=== PATIENT | male | born 1960 | race Caucasian/White ===

== ENCOUNTER 2016-12-23 09:53 | Emergency (ER) | payer OTHER ==
[~2016-12-23] VITALS: Ht 172.7 cm; Wt 87.3 kg
[2016-12-23 09:57] VITALS: TEMP 36.5; Ht 172.7 cm; Wt 87.3 kg
--- NOTE | 2016-12-23 10:56 | EMERGENCY ROOM VISIT NOTE ---
History Report prepared by Jose: Evelyn Cruz Under the Supervision of: Dr. Francesco Phelps M.D. First contact with patient: 10:47 Chief Complaint: RABIES VACCINE Stated Complaint: RABID CAT-RABIES VACCINE History of Present Illness The patient is a 56 year old male who presents to the Emergency Room with complaints of a sudden exposure to rabies that occurred five days ago. The patient states that he was working on his daughter's house this weekend when he had cut his finger. He states that his daughter fixed up the wound. The patient states that his daughter had found a stray kitten that day that tested positive for rabies. He states that he was called by the department of health today and told to come to the emergency department for a rabies vaccine. The patient denies any cat bite. He states that the cat tried scratching him, but denies any break in his skin. The patient denies ever having rabies in the past. He states that his tetanus is up to date. The patient denies any other complaints today. Source of History: patient Onset: five days ago Position: other (global) Quality: other (rabies exposure) Timing: other (sudden) Note: Associated Symptoms: wound exposed to rabies Review of Systems See HPI for pertinent positives & negatives. A total of 10 systems reviewed and were otherwise negative. Past Medical & Surgical Medical Problems: (1) No Known Active Medical Problems Family History Patient reports no known family medical history. Social History Smoking Status: Current Every Day Smoker Drug Use: none Marital Status: Housing Status: lives with significant other Occupation Status: employed Current/Historical Medications Scheduled Atorvastatin (Lipitor), 1 TAB PO DAILY Lisinopril/Hctz (Zestoretic 20MG/25MG), 1 TAB PO DAILY Oxycodone/Acetaminophen 7.5MG/325MG (Percocet 7.5MG/325MG), 1 TAB PO q 4 hrs prn Allergies Coded Allergies: No Known Allergies (Unverified , 10/19/14) Physical Exam Vital Signs Date Time Temp Pulse Resp B/P (MAP) Pulse Ox O2 Delivery O2 Flow Rate FiO2 12/23/16 12:02 60 16 182/80 97 12/23/16 09:57 36.5 72 20 157/91 98 Room Air Physical Exam GENERAL: Patient is in no acute distress. HEENT: No acute trauma, normocephalic atraumatic, mucous membranes moist, no nasal congestion, no scleral icterus. NECK: No stridor, no adenopathy, no meningismus, trachea is midline. LUNGS: Clear to auscultation bilaterally, no wheeze, no rhonchi, breath sounds equal. HEART: Without murmurs gallops or rubs, regular rate and rhythm. ABDOMEN: Soft, nontender, bowel sounds positive, no hernias, no peritonitis. EXTREMITIES: No cyanosis or edema, full range of motion of all the joints without pain or difficulty, no signs for acute trauma. NEUROLOGIC: Oriented x 3, no acute motor or sensory deficits, no focal weakness. SKIN: No rash, no jaundice, no diaphoresis. Medical Decision & Procedures Medications Administered Medications (Trade) Dose Ordered Sig/Leta Route Start Time Stop Time Status Last Admin Dose Admin Rabies Immune Globulin (Imogam Rabies Inj) 1,740 interunit ONCE ONCE IM. 12/23/16 11:00 12/23/16 11:04 DC 12/23/16 11:33 1,740 INTERUNIT Rabies Vaccine Human Diploid Cell (Imovax Rabies) 2.5 interunit ONCE ONCE IM. 12/23/16 11:00 12/23/16 11:04 DC 12/23/16 11:32 2.5 INTERUNIT ED Course 1049: The patient was evaluated in room B10. A complete history and physical exam was performed. I discussed the exam findings with him and I discussed the treatment plan. He verbalized complete understanding and agreement. He is ready to go home once he receives his medication. 1100: Ordered Imovax Rabies 2.5 interunit IM, Imogam Rabies Inj 1740 interunit IM. Medical Decision Patient presents for rabies prophylaxis. This is his first visit. He was told to report to the ER by the Department of Health. The patient received IM rabies immunoglobulin and the first dose of the rabies series. He is being discharged to return at days 3, 7 and 14. Medication Reconcilliation Current Medication List: was personally reviewed by me Impression Primary Impression: Rabies exposure Scribe Attestation The scribe's documentation has been prepared under my direction and personally reviewed by me in its entirety. I confirm that the note above accurately reflects all work, treatment, procedures, and medical decision making performed by me. Departure Information Dispostion Home / Self-Care Referrals Amauri Connell D.O. (PCP) Forms HOME CARE DOCUMENTATION FORM, IMPORTANT VISIT INFORMATION Patient Instructions My [facility] Additional Instructions return in 3 days, 7 days and 14 days return with any concerns
[2016-12-23] MEDS ORDERED: RABIES IMMUNE GLOBULIN (HUMAN) 150 INTER.UNIT/ML 2 ML VIAL IM. ONE (11:00)
[2016-12-23] MEDS ORDERED: RABIES VACCINE (IMOVAX) HUMAN DIPL CELL 2.5 INTER.UNIT/ML SYR IM. ONE (11:00)
[2016-12-23 12:02] VITALS: BP 182/80; PULSE 60; O2SAT 97
[2016-12-27] MEDS ORDERED: OXYC7.5T65 PO (09:00)
[2016-12-27] MEDS ORDERED: ATOR-24 PO (09:00)
== END 2016-12-23 12:04 | disposition home or self-care (01) ==
LOC: C.EDB 09:54
DX: Z20.3 Contact with and (suspected) exposure to rabies (principal); Z23 Encounter for immunization; F17.200 Nicotine dependence, unspecified, uncomplicated

== ENCOUNTER 2016-12-27 10:10 | Emergency (ER) | payer OTHER ==
[~2016-12-27] VITALS: Ht 172.7 cm; Wt 87.0 kg
[~2016-12-27 10:10] MED LIST: ATOR-24 PO; OXYC7.5T65 PO
[2016-12-27 10:19] VITALS: TEMP 36.8; Ht 172.7 cm; Wt 87.0 kg
[2016-12-27] MEDS ORDERED: LISI-788 PO (10:34)
[2016-12-27] MEDS ORDERED: RABIES VACCINE (IMOVAX) HUMAN DIPL CELL 2.5 INTER.UNIT/ML SYR IM. ONE (10:45)
--- NOTE | 2016-12-27 11:02 | EMERGENCY ROOM VISIT NOTE ---
ED Visit Note First contact with patient: 10:23 CHIEF COMPLAINT: Rabies shot #2 HISTORY OF PRESENT ILLNESS: Patient is a 56-year-old white male who returns to the emergency department for his second rabies vaccination. He is potentially exposed to rabies when he handled a cat that ultimately tested positive for rabies. He received his initial vaccines here on 12/23. He denies any problems or concerns after his first round of injections. He was confused about his return today, and should have been here yesterday, 12/26 for his second Imovax injection. REVIEW OF SYSTEMS: Review of systems as per HPI. All other systems reviewed were negative. At least 3 systems reviewed. PMH: Reviewed and unchanged from prior visit. SOCIAL HISTORY: Patient lives at home. PHYSICAL EXAM: Vital Signs: Reviewed Nurse's notes. HEAD: Atraumatic, without temporal or scalp tenderness. EYES: PERRL, EOMI, no discharge or injection. SKIN: Normal. NEUROLOGICAL: Alert and cooperative. Sensory and motor functions grossly intact. EMERGENCY DEPARTMENT COURSE: The patient was seen and examined as above. He was given Imovax IM, observed and then discharged. Specific dates were reviewed with the patient to keep with the correct vaccination schedule. The remainder of his vaccination shot be given on 12/30 and 01/06. The patient reports however that he is traveling out of town late Tuesday evening and not returning to [employer] [place] until Sunday 12/31. He will be in [place] visiting family. He was advised that he could either seek evaluation in [place] to get his third rabies vaccination, or should return to the emergency department as soon as he returns to town on Sunday 12/31 for his injection. Medication reconciliation: I attest that I have personally reviewed the patient' s current medication list. Blood pressure screening: Patient was found to have a slightly elevated blood pressure due to circumstances. I do not believe that the patient requires hypertension monitoring. Current/Historical Medications Scheduled Atorvastatin (Lipitor), 1 TAB PO DAILY Lisinopril/Hctz (Zestoretic 20MG/25MG), 1 TAB PO DAILY Oxycodone/Acetaminophen 7.5MG/325MG (Percocet 7.5MG/325MG), 1 TAB PO q 4 hrs prn Allergies Coded Allergies: No Known Allergies (Unverified , 12/27/16) Vital Signs Date Time Temp Pulse Resp B/P (MAP) Pulse Ox O2 Delivery O2 Flow Rate FiO2 12/27/16 11:17 78 18 134/93 99 12/27/16 10:19 36.8 70 20 181/94 95 Room Air Medications Administered Medications (Trade) Dose Ordered Sig/Leta Route Start Time Stop Time Status Last Admin Dose Admin Rabies Vaccine Human Diploid Cell (Imovax Rabies) 2.5 interunit ONCE ONCE IM. 12/27/16 10:45 12/27/16 10:46 DC 12/27/16 10:46 2.5 INTERUNIT Departure Information Impression Primary Impression: Need for post exposure prophylaxis for rabies Referrals Amauri Connell, D.O. (PCP) Patient Instructions My [facility] Additional Instructions Return to the ED on 12/30 and 01/06 for your remaining vaccinations, sooner for any problems or concerns.
[2016-12-27 11:17] VITALS: BP 134/93; PULSE 78; O2SAT 99
== END 2016-12-27 11:18 | disposition home or self-care (01) ==
LOC: C.EDB 10:11 → C.EDC 11:18
DX: Z20.3 Contact with and (suspected) exposure to rabies (principal); Z23 Encounter for immunization

== ENCOUNTER 2016-12-31 12:53 | Emergency (ER) | payer OTHER ==
[~2016-12-31] VITALS: Ht 172.7 cm; Wt 86.3 kg
[~2016-12-31 12:53] MED LIST changes: +LISI-788 PO
[2016-12-31 13:05] VITALS: BP 149/92; PULSE 72; TEMP 36.9; O2SAT 96; Ht 172.7 cm; Wt 86.3 kg
[2016-12-31] MEDS ORDERED: RABIES VACCINE (IMOVAX) HUMAN DIPL CELL 2.5 INTER.UNIT/ML SYR IM. ONE (13:30)
--- NOTE | 2016-12-31 13:33 | EMERGENCY ROOM VISIT NOTE ---
ED Visit Note First contact with patient: 13:11 CHIEF COMPLAINT: Rabies prophylaxis HISTORY OF PRESENT ILLNESS: This 56-year-old male patient presents to the emergency department for their third rabies shot. The patient reports that he had headache which later tested positive for rabies. The patient has not had any complications from the previous injections. They deny any other complaints. REVIEW OF SYSTEMS: A 6 system review of systems was completed with positives and pertinent negatives listed in the HPI. ALLERGIES: No known drug allergies MEDICATIONS: Lipitor, Zestoretic PMH: Unchanged from previous visit. PHYSICAL EXAM: Vital Signs: Reviewed Nurse's notes, vital signs stable. GENERAL : This is a 56-year-old male, in no acute distress, well-developed, well- nourished. HEAD: Atraumatic, without temporal or scalp tenderness. EYES: PERRLA, EOMI, no discharge or injection. SKIN: Normal. NEUROLOGICAL: Alert and cooperative. Sensory and motor functions grossly intact. EMERGENCY DEPARTMENT COURSE: I examined the patient. He is one day late for his vaccination, however the patient was out of town and this was discussed on his previous visit. He is planning to return for his final vaccination as scheduled 01/06/17. The patient was given Imovax 2.5 units IM. The patient was observed for 20 minutes with no reaction. The patient was discharged home in stable condition. Medication reconciliation: I attest that I have personally reviewed the patient 's current medication list. Blood Pressure Screening: Patient was found to have a slightly elevated blood pressure due to circumstances. I do not believe that the patient requires hypertension monitoring. DIAGNOSIS: Rabies prophylaxis Current/Historical Medications Scheduled Atorvastatin (Lipitor), 1 TAB PO DAILY Lisinopril/Hctz (Zestoretic 20MG/25MG), 1 TAB PO DAILY Oxycodone/Acetaminophen 7.5MG/325MG (Percocet 7.5MG/325MG), 1 TAB PO q 4 hrs prn Scheduled PRN Diazepam (Diazepam), 4 MG PO Q8 PRN for Anxiety/Agitation Allergies Coded Allergies: No Known Allergies (Unverified , 12/31/16) Vital Signs Date Time Temp Pulse Resp B/P (MAP) Pulse Ox O2 Delivery O2 Flow Rate FiO2 12/31/16 13:05 36.9 72 20 149/92 96 Room Air Medications Administered Medications (Trade) Dose Ordered Sig/Leta Route Start Time Stop Time Status Last Admin Dose Admin Rabies Vaccine Human Diploid Cell (Imovax Rabies) 2.5 interunit ONCE ONCE IM. 12/31/16 13:30 12/31/16 13:31 DC 12/31/16 13:36 2.5 INTERUNIT Departure Information Impression Primary Impression: Rabies, need for prophylactic vaccination against Dispostion Home / Self-Care Condition GOOD Referrals Amauri Connell, D.O. (PCP) Patient Instructions My [facility] Additional Instructions Return for your final vaccination 01/06/17.
[2016-12-31] MEDS ORDERED: VLM2 PO (13:40)
== END 2016-12-31 13:49 | disposition home or self-care (01) ==
LOC: C.EDB 12:54 → C.EDD 13:49
DX: Z23 Encounter for immunization (principal); Z20.3 Contact with and (suspected) exposure to rabies

== ENCOUNTER 2017-01-06 09:12 | Emergency (ER) | payer OTHER ==
[~2017-01-06] VITALS: Ht 172.7 cm; Wt 86.3 kg
[~2017-01-06 09:12] MED LIST changes: +VLM2 PO
[2017-01-06 09:14] VITALS: BP 144/88; PULSE 67; TEMP 36.8; O2SAT 97; Ht 172.7 cm; Wt 86.3 kg
[2017-01-06] MEDS ORDERED: RABIES VACCINE (IMOVAX) HUMAN DIPL CELL 2.5 INTER.UNIT/ML SYR IM. ONE (09:30)
--- NOTE | 2017-01-06 14:51 | EMERGENCY ROOM VISIT NOTE ---
History Report prepared by Jose: Yuri Ott Under the Supervision of: Dr. Sidney Ward D.O. First contact with patient: 09:18 Chief Complaint: RABIES VACCINE REPEAT VISIT Stated Complaint: FINAL RABIES VACCINE History of Present Illness The patient is a 56 year old male who presents to the Emergency Room with a request for his last round of a rabies vaccination. He was scratched by a cat infected with rabies on December 23. He received previous immunoglobin and Imovax. He has no complaints at this time. He denies any chest pain, shortness of breath, nausea, vomiting, or fevers. His scratches are well healed. Source of History: patient Onset: 2 weeks ago Position: arm (bilateral) Symptom Intensity: mild Quality: other (Cat scratch) Timing: other (Healing) Associated Symptoms: No fevers, No chest pain, No SOB, No nausea, No vomiting Review of Systems See HPI for pertinent positives & negatives. A total of 10 systems reviewed and were otherwise negative. Past Medical & Surgical Medical Problems: (1) No Known Active Medical Problems Family History Patient reports no known family medical history. Social History Smoking Status: Current Every Day Smoker Drug Use: none Marital Status: Housing Status: lives with significant other Occupation Status: employed Current/Historical Medications Scheduled Atorvastatin (Lipitor), 1 TAB PO DAILY Lisinopril/Hctz (Zestoretic 20MG/25MG), 1 TAB PO DAILY Oxycodone/Acetaminophen 7.5MG/325MG (Percocet 7.5MG/325MG), 1 TAB PO q 4 hrs prn Scheduled PRN Diazepam (Diazepam), 4 MG PO Q8 PRN for Anxiety/Agitation Allergies Coded Allergies: No Known Allergies (Unverified , 12/31/16) Physical Exam Vital Signs Date Time Temp Pulse Resp B/P (MAP) Pulse Ox O2 Delivery O2 Flow Rate FiO2 01/06/17 09:14 36.8 67 16 144/88 97 Room Air Physical Exam GENERAL: Sitting up in bed, alert, well appearing, well nourished, no distress, non-toxic EYE EXAM: normal conjunctiva OROPHARYNX: mucous membranes are moist LUNGS: Clear to auscultation. Normal chest wall mechanics HEART: no murmurs, S1 normal and S2 normal ABDOMEN: abdomen soft, non-tender, normo-active bowel sounds, no masses, no rebound or guarding. BACK: Back is symmetrical on inspection and there is no deformity, no midline tenderness, no CVA tenderness. SKIN: no rashes and no bruising UPPER EXTREMITIES: Right hand has multiple scratches without surrounding erythema or induration. NEURO EXAM: Normal sensorium. Medical Decision & Procedures Medications Administered Medications (Trade) Dose Ordered Sig/Leta Route Start Time Stop Time Status Last Admin Dose Admin Rabies Vaccine Human Diploid Cell (Imovax Rabies) 2.5 interunit ONCE ONCE IM. 01/06/17 09:30 01/06/17 09:31 DC 01/06/17 09:28 2.5 INTERUNIT ED Course ED COURSE: Vital signs were reviewed and showed hypertension. The patients medical record was reviewed The above diagnostic studies were performed and reviewed. ED treatments and interventions as stated above. 0918: The patient was evaluated in room A11. A complete history and physical examination was performed. 0930: Ordered Imovax Rabies 2.5 interunit IM 1000: Upon reevaluation, the patient is resting. I discussed my findings with the patient and he understands and agrees with the treatment plan. Based on the patients age, coexisting illnesses, exam and lab findings the decision to treat as an outpatient was made. The patient remained stable while under my care. The patient appeared well at the time of discharge. Medical Decision Patient is a 56-year-old male who presents to ER for his last rabies vaccine. He has no other complaints. He was scratched by a cat on his right hand. No surrounding erythema or induration. No fevers. Patient was given immunoglobulin and vaccine as per patient. Patient was given his additional vaccine and discharged follow-up with PCP. Discussed with Pt concerning signs and symptoms to watch out for. Pt was instructed to follow up with their PCP and discussed with the patient their option to return to the ED at anytime for persistent or worsening symptoms. The appropriate anticipatory guidance and out- patient management, including indications for return to the emergency department , were explained at length to the patient and understood. Medication Reconcilliation Current Medication List: was personally reviewed by me Blood Pressure Screening Patient's blood pressure: Elevated blood pressure Blood pressure disposition: Elevated BP felt to be situational Impression Primary Impression: Rabies exposure Scribe Attestation The scribe's documentation has been prepared under my direction and personally reviewed by me in its entirety. I confirm that the note above accurately reflects all work, treatment, procedures, and medical decision making performed by me. Departure Information Dispostion Home / Self-Care Referrals No Doctor, Assigned (PCP) Forms WORK / SCHOOL INSTRUCTIONS, HOME CARE DOCUMENTATION FORM, IMPORTANT VISIT INFORMATION Patient Instructions Rabies, My [facility], Rabies Vaccine suspension for injection Additional Instructions Please follow up with your primary care doctor within the next 72 hours. Any worsening of your symptoms, please return to the ED immediately. This includes any fevers greater than 100.4, worsening pain, chest pain, shortness breath, persistent nausea, vomiting, unable to eat or drink, or any other concerning signs or symptoms from your standpoint.
== END 2017-01-06 09:31 | disposition home or self-care (01) ==
LOC: C.EDB 09:13 → C.EDA 09:31
DX: Z20.3 Contact with and (suspected) exposure to rabies (principal); Z23 Encounter for immunization